=== PATIENT | female | born 1990 | race American Indian/Alaskan Native ===

== ENCOUNTER 2018-06-08 14:54 | Emergency (ER) | payer SELFPAY ==
[2018-06-08 15:26] VITALS: BP 126/70
[2018-06-08] MEDS ORDERED: MOTRIN PO ONE (19:06)
--- NOTE | 2018-06-08 19:51 | Emergency Department Report ---
ED Female HPI - General Chief complaint: Urogenital-Female Stated complaint: EYE PAIN / PELVIC PAIN Time Seen by Provider: 06/08/18 17:43 Source: patient Mode of arrival: Ambulatory Limitations: No Limitations - History of Present Illness Initial comments: This is a 28-year-old female nontoxic, well nourished in appearance, no acute signs of distress presents to the ED with c/o of vaginal discharge, pelvic cramping, and left eye itching with redness and crusting. Patient denies any vaginal pain or swelling. Patient denies any vaginal ulcers or lesions. Patient denies any radiation of pelvic pain. Patient denies any abdominal pain. Patient denies any nausea, vomiting, chest pain, shortness of breathe, fever, chills, headache, back pain, numbness, tingling, stiff neck. Patient denies any urinary symptoms. Patient denies any eye trauma or visual changes. Patient denies any eye pain. Patient denies any allergies or PMH. MD Complaint: vaginal discharge, pelvic pain, possible STD -: week(s) (1) Radiation: non-radiating Severity: mild Severity scale (0 -10): 3 Quality: cramping Consistency: intermittent Improves with: none Worsens with: none Associated Symptoms: vaginal discharge. denies: vaginal bleeding, abdominal pain, nausea/vomiting, fever/chills, headaches, loss of appetite, dysuria, hematuria, rash, seizure, shortness of breath, syncope, weakness - Related Data Sexually active: Yes Home Medications Medication Instructions Recorded Confirmed Last Taken Plus Multivitamin Tab 1 tab PO DAILY 10/23/15 10/23/15 Unknown Previous Rx's Medication Instructions Recorded Last Taken Type HYDROcodone/APAP 5-325 [[place] 1 each PO Q6HR PRN #20 tablet 10/23/15 Unknown Rx 5/325] Ibuprofen [Motrin] 800 mg PO Q8HR PRN #60 tablet 10/23/15 Unknown Rx Ciprofloxacin 0.3% (Nf) 2 drops OS TID #1 drops 06/08/18 Unknown Rx [Ciprofloxacin OPTH] Ibuprofen [Motrin] 600 mg PO Q8H PRN #30 tablet 06/08/18 Unknown Rx metroNIDAZOLE [Flagyl] 500 mg PO Q12HR #14 tab 06/08/18 Unknown Rx Allergies Allergy/AdvReac Type Severity Reaction Status Date / Time No Known Allergies Allergy Verified 07/04/15 10:48 ED Review of Systems ROS: Stated complaint: EYE PAIN / PELVIC PAIN Other details as noted in HPI Constitutional: denies: chills, fever Eyes: eye discharge. denies: eye pain, vision change ENT: denies: ear pain, throat pain Respiratory: denies: cough, shortness of breath, wheezing Cardiovascular: denies: chest pain, palpitations Endocrine: no symptoms reported Gastrointestinal: denies: abdominal pain, nausea, vomiting, diarrhea Genitourinary: discharge. denies: urgency, dysuria, frequency, hematuria Musculoskeletal: denies: back pain, joint swelling, arthralgia Skin: denies: rash, lesions Neurological: denies: headache, weakness, paresthesias Psychiatric: denies: anxiety, depression Hematological/Lymphatic: denies: easy bleeding, easy bruising ED Past Medical Hx - Past Medical History Previous Medical History?: No Hx Hypertension: No Hx Congestive Heart Failure: No Hx Diabetes: No Hx Deep Vein Thrombosis: No Hx Renal Disease: No Hx Sickle Cell Disease: No Hx Seizures: No Hx Asthma: No Hx COPD: No Hx HIV: No - Surgical History Past Surgical History?: No Additional Surgical History: Vaginal delivery 06/26/2013 - Social History Smoking Status: Never Smoker Substance Use Type: None - Medications Home Medications: Home Medications Medication Instructions Recorded Confirmed Last Taken Type HYDROcodone/APAP 5-325 [[place] 1 each PO Q6HR PRN #20 tablet 10/23/15 Unknown Rx 5/325] Ibuprofen [Motrin] 800 mg PO Q8HR PRN #60 tablet 10/23/15 Unknown Rx Plus Multivitamin Tab 1 tab PO DAILY 10/23/15 10/23/15 Unknown History Ciprofloxacin 0.3% (Nf) 2 drops OS TID #1 drops 06/08/18 Unknown Rx [Ciprofloxacin OPTH] Ibuprofen [Motrin] 600 mg PO Q8H PRN #30 tablet 06/08/18 Unknown Rx metroNIDAZOLE [Flagyl] 500 mg PO Q12HR #14 tab 06/08/18 Unknown Rx ED Physical Exam - General Limitations: No Limitations General appearance: alert, in no apparent distress - Head Head exam: Present: atraumatic, normocephalic - Eye Eye exam: Present: normal appearance Pupils: Present: normal accommodation - Expanded Eye Exam Expanded Eyelids: Normal Inspection: Left Pupils: Regular, Round: Left, Reactive: Left Sclera/Conjunctival: Normal Inspection: Left (with itching, redness and crusting ) - ENT ENT exam: Present: normal exam, mucous membranes moist - Neck Neck exam: Present: normal inspection, full ROM. Absent: tenderness, meningismus, lymphadenopathy - Respiratory Respiratory exam: Present: normal lung sounds bilaterally. Absent: respiratory distress, wheezes, rales, rhonchi, stridor, chest wall tenderness, accessory muscle use, decreased breath sounds, prolonged expiratory - Cardiovascular Cardiovascular Exam: Present: regular rate, normal rhythm, normal heart sounds. Absent: bradycardia, tachycardia, irregular rhythm, systolic murmur, diastolic murmur, rubs, gallop - GI/Abdominal GI/Abdominal exam: Present: soft, normal bowel sounds. Absent: distended, tenderness, guarding, rebound, rigid, diminished bowel sounds - Expanded GI/Abdominal Exam Expanded GI/Abdominal exam: Absent: psoas sign, obturator sign, heel tap sign, Yu's sign, Rovsing's sign, tenderness at Mcburney's Point, ascites - Rectal Rectal exam: Present: deferred - External exam: Present: normal external exam, other (dispatch manager Gabrielle transverse abdominal muscle surgeon present during exam). Absent: erythema, swelling, lesions, lacerations, ecchymosis, bleeding Speculum exam: Present: normal speculum exam, cervical discharge (white with no foul odor), other (dispatch manager Gabrielle transverse abdominal muscle surgeon present during exam). Absent: erythema, vaginal discharge, vaginal bleeding, foreign body, tissue, laceration Bi-manual exam: Present: normal bi-manual exam, other (dispatch manager Gabrielle transverse abdominal muscle surgeon present during exam). Absent: cervical motion tendernes, adnexal tenderness, adnexal mass, uterine enlargement, uterine tenderness - Extremities Exam Extremities exam: Present: normal inspection, full ROM, normal capillary refill. Absent: tenderness - Back Exam Back exam: Present: normal inspection, full ROM. Absent: tenderness, CVA tenderness (R), CVA tenderness (L), muscle spasm, paraspinal tenderness, vertebral tenderness, rash noted - Neurological Exam Neurological exam: Present: alert, oriented X3, normal gait - Psychiatric Psychiatric exam: Present: normal affect, normal mood - Skin Skin exam: Present: warm, dry, intact, normal color. Absent: rash ED Course Vital Signs 06/08/18 06/08/18 15:23 22:03 Temperature 98.5 F Pulse Rate 80 Respiratory 18 18 Rate Blood Pressure 126/70 O2 Sat by Pulse 99 Oximetry - Reevaluation(s) Reevaluation #1: 06/08/18 19:56 Patient is speaking in full sentences with no signs of distress noted. - Consultations Consultation #1: 06/08/18 23:44 Patient has been consulted with Xiomara Hutchinson (INSTRUCTIONAL SERVICES LIBRARIAN) about patient history , physical exam, and labs/US report and stated patient can be discharged with follow-up in the office. ED Medical Decision Making - Lab Data Result diagrams: 06/08/18 20:25 06/08/18 20:25 - Medical Decision Making This is a 28-year-old female that presents with possible STD, BV, and let eye conjunctivitis. Patient is stable was examined by me. There is no abdominal tenderness. No pelvic pain. UA obtained. Wet prep obtained. Gonorrhea chlamydia swab pending. US of pelvic and transvaginal obtained. Patient is notified of the results with no questions noted. Patient was instructed to return in 2 days for GC results. Patient wanted empirical treatment so patient received 250 mg Rocephin and 1 g of azithromycin by mouth. Patietn is discharged with Ciprofloxcin Opth and Flagyl PO. Patient was instructed not to consume and alcohol while taking Falgyl. Patient was instructed to Follow-up with a primary care doctor in 3-5 days or if symptoms worsen and continue return to emergency room as soon as possible. At time of discharge, the patient does not seem toxic or ill in appearance. No acute signs of distress noted. Patient agrees to discharge treatment plan of care. No further questions noted by the patient. Critical care attestation.: If time is entered above; I have spent that time in minutes in the direct care of this critically ill patient, excluding procedure time. ED Disposition Clinical Impression: Bacterial vaginosis, Possible exposure to STD Left conjunctivitis Qualifiers: Conjunctivitis type: acute Acute conjunctivitis type: bacterial Qualified Code( s): H10.32 - Unspecified acute conjunctivitis, left eye Disposition: DC-01 TO HOME OR SELFCARE Is pt being admited?: No Does the pt Need Aspirin: No Condition: Stable Instructions: Metronidazole (By mouth), Bacterial Vaginosis (ED), Safe Sex (ED) , Conjunctivitis (ED) Additional Instructions: Follow-up with a primary care doctor in 3-5 days or if symptoms worsen and continue return to emergency room as soon as possible. Return in 3-5 days for gonorrhea and chlamydia results. Do not consume any alcohol while taking antibiotics. Prescriptions: Ciprofloxacin 0.3% (Nf) [Ciprofloxacin OPTH] 2 drops OS TID #1 drops Ibuprofen [Motrin] 600 mg PO Q8H PRN #30 tablet PRN Reason: Pain metroNIDAZOLE [Flagyl] 500 mg PO Q12HR #14 tab Referrals: PRIMARY CAREMD [Primary Care Provider] - 3-5 Days FRANCISCA TREVIÑO MD [Staff Physician] - 3-5 Days [facility] [Outside] - 3-5 Days [facility] [Outside] - 3-5 Days Forms: Work/School Release Form(ED)
[2018-06-08 20:40] LABS: Mucus,Urine FEW /HPF
[2018-06-08 20:51] LABS: Basophils % (Auto) 0.6 % (0.0-1.8); Eosinophils # (Auto) 0.1 K/mm3 (0.0-0.4); Eosinophils % (Auto) 1.1 % (0.0-4.3); Hematocrit 38.9 % (30.3-42.9); Hemoglobin 13.1 gm/dl (10.1-14.3); Lymphocytes # (Auto) 2.2 K/mm3 (1.2-5.4); Lymphocytes % (Auto) 28.9 % (13.4-35.0); Mean Corpuscular HGB Conc 34 % (30-34); Mean Corpuscular Hemoglobin 32 pg (28-32); Mean Corpuscular Volume 94 fl (79-97); Monocytes # (Auto) 0.4 K/mm3 (0.0-0.8); Platelet Count 243 K/mm3 (140-440); Red Blood Count 4.13 M/mm3 (3.65-5.03); Red Cell Distribution Width 12.1 % (13.2-15.2)
[2018-06-08 20:51] LABS: Bilirubin,Urine NEG (Negative); Blood,Urine NEG (Negative); Color,Urine Yellow (Yellow); Protein,Urine <15 mg/dL mg/dL (Negative); Urobilinogen,Urine < 2.0 mg/dL (<2.0)
[2018-06-08 21:02] LABS: BUN/Creatinine Ratio 11; Blood Urea Nitrogen 9 mg/dL (7-17); Calcium 9.4 mg/dL (8.4-10.2); Hemolysis Index 0
[2018-06-08] MEDS ORDERED: XYLOCAINE 1% MPF 5 mL INFILTRATI ONE (21:10)
[2018-06-08] MEDS ORDERED: ZITHROMAX PO ONE (21:10)
[2018-06-08] MEDS ORDERED: ROCEPHIN IM ONE (21:10)
[2018-06-08] MEDS ORDERED: MOTRIN ONE (21:53)
--- NOTE | 2018-06-08 23:04 | Ultrasound Report ---
FINAL REPORT EXAM: US PELVIC COMPLETE HISTORY: pelvic pain TECHNIQUE: Ultrasound pelvis transabdominal and transvaginal PRIORS: None. FINDINGS: Uterus 6.7 x 4.6 x 4.2 centimeters. Endometrial thickness is 0.94 centimeters There is an IUD seen within the uterus. The distal end of the uterus is within the fundus and a portion of the device appears to extend into the anterior fundal myometrium. Right ovary is 3.6 x 2.5 x 3.5 centimeters Left ovary is 4.7 x 3.3 x 3.2 centimeters Within the left ovary there is a 3.7 centimeter hypoechoic focus with some internal echoes consistent with a mildly complex cyst. Minimal free fluid noted in the cul-de-sac IMPRESSION: IUD within the uterus. Suspect that a portion of the IUD may be penetrating the myometrium. Mildly complex 3.7 centimeter left ovarian cyst Small amount of free fluid within the lower pelvis most likely physiologic
--- NOTE | 2018-06-08 23:54 | Ultrasound Report ---
FINAL REPORT EXAM: US TRANSVAGINAL HISTORY: pelvic pain TECHNIQUE: Ultrasound pelvis transvaginal PRIORS: None. FINDINGS: Uterus 6.7 x 4.6 x 4.2 centimeters. Endometrial thickness is 0.94 centimeters There is an IUD seen within the uterus. The distal end of the uterus is within the fundus and a portion of the device appears to extend into the anterior fundal myometrium. Right ovary is 3.6 x 2.5 x 3.5 centimeters Left ovary is 4.7 x 3.3 x 3.2 centimeters Within the left ovary there is a 3.7 centimeter hypoechoic focus with some internal echoes consistent with a mildly complex cyst. Minimal free fluid noted in the cul-de-sac IMPRESSION: IUD within the uterus. Suspect that a portion of the IUD may be penetrating the myometrium. Mildly complex 3.7 centimeter left ovarian cyst Small amount of free fluid within the lower pelvis most likely physiologic
== END 2018-06-09 00:05 | disposition home or self-care (01) ==
LOC: ED 14:54
DX: N76.0 Acute vaginitis (principal); Z20.2 Contact with and (suspected) exposure to infections with a predominantly sexual mode of transmission; H10.32 Unspecified acute conjunctivitis, left eye
CPT/HCPCS: 36415; 76830; 76856; 80048; 81001; 84703; 85025; 87210; 87591; 96372; 99284; J0696